=== PATIENT | male | born 1935 | race Native Hawaiian/Other Pacific Islander ===

== ENCOUNTER 2022-01-27 17:59 | Emergency (ER) | payer OTHER ==
[~2022-01-27] VITALS: Ht 182.9 cm; Wt 87.1 kg
[2022-01-27 18:27] LABS: PLATELET COUNT 180 K/uL (142-355)
[2022-01-27 18:47] LABS: POTASSIUM 3.9 mmol/L (3.6-5.2)
[2022-01-27 19:35] VITALS: BP 158/81; TEMP 97.3
[2022-01-28] MEDS ORDERED: MILK OF MA400 MG/5 M PO (11:18)
[2022-01-28] MEDS ORDERED: BISA10SU8 PR (11:19)
[2022-01-28] MEDS ORDERED: FLEET ENEMA PR (11:20)
[2022-01-28] MEDS ORDERED: GABA300C2 PO (11:21)
[2022-01-28] MEDS ORDERED: DEX PO (11:22)
[2022-01-28] MEDS ORDERED: GUAIFENESIN PO (11:22)
[2022-01-28] MEDS ORDERED: IMODIUM A-D2 MG PO (11:23)
[2022-01-28] MEDS ORDERED: DIPHENHYDRAMINE25 MG PO (11:24)
[2022-01-28] MEDS ORDERED: ALPRAZOLAM PO (11:25)
[2022-01-28] MEDS ORDERED: ANTACID & ANTIG1 SUS PO (11:26)
[2022-01-28] MEDS ORDERED: TYLENOL325 MG PO (11:28)
[2022-01-28] MEDS ORDERED: ACETAMINOPHEN PR (11:28)
[2022-01-28] MEDS ORDERED: PRADAXA150 MG PO (17:15)
[2022-01-28] MEDS ORDERED: TELMISARTAN20 MG PO (17:17)
[2022-01-28] MEDS ORDERED: LIPITOR10 MG PO (17:17)
[2022-01-28] MEDS ORDERED: FLUOXETINE HYDR20 MG PO (17:18)
[2022-01-29] MEDS ORDERED: XANAX XR1 MG PO (07:47)
[2022-01-29] MEDS ORDERED: GABA300C2 PO (07:49)
[2022-01-29] MEDS ORDERED: TRADJENTA5 M1 PO (07:51)
[2022-01-29] MEDS ORDERED: FURO20TA67 PO (07:51)
[2022-01-29] MEDS ORDERED: QUETIAPINE100 MG PO (07:52)
== END 2022-01-27 19:35 | disposition still patient (30) ==
LOC: ED 17:59
PROVIDERS: Hospitalist
DX: F32.89 Other specified depressive episodes (principal); R45.851 Suicidal ideations; Z11.52 Encounter for screening for COVID-19; Z04.6 Encounter for general psychiatric examination, requested by authority
CPT/HCPCS: 80053; 85027; 87635; 93005; 99283; U0003